=== PATIENT | male | born 1945 | race Caucasian/White ===

== ENCOUNTER 2020-04-01 01:20 | Observation (INO) ==
[2020-04-01] MEDS ORDERED: 0.9 % Sodium Chloride 500 ML IVC ONE (01:22)
[2020-04-01] MEDS ORDERED: Aspirin 81 MG TAB.CHEW PO ONE (01:26)
[2020-04-01 01:50] LABS: Basophils # 0.1 K/mcL (0.0-0.2); Basophils % 0.5 %; Eosinophils # 0.1 K/mcL (0.0-0.6); Hematocrit 45.6 % (37.5-50.1); Hemoglobin 14.7 g/dL (12.9-16.9); Immature Granulocytes % 0.4 % (0-4); Lymphocytes # 1.7 K/mcL (0.6-4.6); Lymphocytes % 15.7 %; Mean Corpuscular HGB Conc 32.2 g/dL (31.6-35.5); Mean Corpuscular Hemoglobin 26.7 pg (28.0-33.3); Mean Corpuscular Volume 82.9 fL (83.0-100.0); Mean Platelet Volume 10.9 fL (9.4-12.4); Monocytes # 0.8 K/mcL (0.0-1.3); Monocytes % 7.3 %; Neutrophils # 8.3 K/mcL (1.6-8.9); Platelet Count 255 K/mcL (140-400); Red Cell Distribution Width 14.4 % (11.5-14.5); Segmented Neutrophils % 75.1 %; White Blood Count 11.1 K/mcL (4.3-11.1)
[2020-04-01 01:53] LABS: INR 1.1; Prothrombin Time 12.6 Seconds (9.4-12.1)
[2020-04-01 02:13] LABS: BUN/Creatinine Ratio 13 (6-26); Blood Urea Nitrogen 16 mg/dL (8-23); Carbon Dioxide 24 mEq/L (23-29); Chloride 108 mEq/L (98-107); Glucose 149 mg/dL (70-105); Osmolality,Calculated 298 (280-300); Potassium 3.6 mEq/L (3.5-5.1); Sodium 142 mEq/L (136-145); Troponin I 0.03 ng/mL (< 0.04); eGFR For African Americans > 60 (> 60); eGFR For Non-African Americans 56 (> 60)
[2020-04-01] MEDS ORDERED: haloperidoL 5 MG TABLET PO ONE (02:52)
[2020-04-01 03:37] LABS: Acetaminophen < 10 mcg/mL (10-20); Ethanol < 10 mg/dL (Less than 10); Salicylate < 2.5 mg/dL (15.0-30.0)
[2020-04-01 04:23] LABS: Bilirubin,Urine Negative (Negative); Blood,Urine Negative (Negative); Clarity,Urine Clear (Clear); Color,Urine Light-Yellow (Yellow); Glucose,Urine (UA) Normal (Normal); Ketones,Urine Trace mg/dL (Negative); Leukocyte Esterase,Urine Negative (Negative); Nitrite,Urine Negative (Negative); Protein,Urine Negative (Neg-Trace); Urobilinogen,Urine Normal (Normal)
[2020-04-01 04:37] LABS: Amphetamine Screen,Urine Negative ng/mL (Cutoff=1000); Barbiturate Screen,Urine Negative ng/mL (Cutoff=200); Benzodiazepines Screen,Urine Negative ng/mL (Cutoff=200); Cannabinoid Screen,Urine Negative ng/mL (Cutoff = 50); Cocaine Screen,Urine Negative ng/mL (Cutoff= 300); Opiate Screen,Urine Negative ng/mL (Cutoff=300); Phencyclidine Screen,Urine Negative ng/mL (Cutoff=25)
[2020-04-01] MEDS ORDERED: Naloxone 0.4 MG/ML INJ IVP PRN (05:07)
[2020-04-01] MEDS ORDERED: *HR* LORazepam 2 MG/ML VIAL ONE (06:37)
[2020-04-01] MEDS: *HR* LORazepam 2 MG/ML VIAL IVP ONE ×2 (06:41→07:16)
[2020-04-01] MEDS ORDERED: Dexmedetomidine HCl 400 MCG/100 ML MLS IVC SCH (07:00)
[2020-04-01] MEDS ORDERED: Acetaminophen 325 MG TABLET PO PRN (08:44)
[2020-04-01] MEDS ORDERED: *HR* LORazepam 1 MG TABLET PO PRN (08:44)
[2020-04-01] MEDS ORDERED: Haloperidol Lactate 5 MG/ML VIAL IM PRN (08:44)
[2020-04-01] MEDS ORDERED: Nitroglycerin 0.4 MG TAB.SUBL SL SCH (08:45)
[2020-04-01] MEDS ORDERED: Perflutren Lipid Microsphere 1.3 ML in 0.9 % Sodium Chloride 8.7 ML IVP PRN (08:47)
[2020-04-01] MEDS ORDERED: Nitroglycerin 0.4 MG TAB.SUBL SL PRN (08:54)
[2020-04-01] MEDS: amLODIPine 5 MG TABLET PO SCH (09:17)
[2020-04-01] MEDS: Multivit/Ca/Min/Fe/FA 1 TAB TABLET PO SCH (09:17)
[2020-04-01] MEDS: Cholecalciferol (D-3) 1,000 UNIT (25MCG) TABLET PO SCH (09:18)
[2020-04-01] MEDS: Aspirin Enteric Coated 81 MG Tablet PO SCH (09:18)
[2020-04-01] MEDS: *HR* LORazepam 2 MG/ML VIAL IVP PRN ×2 (12:47→16:59)
[2020-04-01] MEDS: *HR* Heparin 5,000 UNIT/ML VIAL SQ SCH (16:58)
[2020-04-01] MEDS ORDERED: FLUVOXAMINE MALEATE 300 MG PO SCH (21:00)
[2020-04-01] MEDS: Melatonin 3 MG TABLET PO SCH (21:01)
[2020-04-01] MEDS: Latanoprost 2.5 ML BOTTLE BOTH EYES SCH (21:10)
[2020-04-01] MEDS: traZODone 50 MG TABLET PO SCH (21:10)
[2020-04-02 02:58] LABS: Chol/HDL Ratio 2.4 (0-4.9)
[2020-04-02] MEDS ORDERED: Regadenoson 0.4 MG/5 ML SYRINGE IVP ONE (05:57)
[2020-04-02] MEDS: *HR* Heparin 5,000 UNIT/ML VIAL SQ SCH ×2 (06:33→19:09)
[2020-04-02] MEDS: Multivit/Ca/Min/Fe/FA 1 TAB TABLET PO SCH (08:37)
[2020-04-02] MEDS: Aspirin Enteric Coated 81 MG Tablet PO SCH (08:37)
[2020-04-02] MEDS: amLODIPine 5 MG TABLET PO SCH (08:39)
[2020-04-02] MEDS: Cholecalciferol (D-3) 1,000 UNIT (25MCG) TABLET PO SCH (08:39)
[2020-04-02 08:49] LABS: Estimated Average Glucose 114 mg/dl
[2020-04-02] MEDS: traZODone 50 MG TABLET PO SCH (20:27)
[2020-04-02] MEDS: Melatonin 3 MG TABLET PO SCH (20:28)
[2020-04-02] MEDS: Latanoprost 2.5 ML BOTTLE BOTH EYES SCH (20:30)
[2020-04-03 06:20] VITALS: BP 167/95
[2020-04-03] MEDS: *HR* Heparin 5,000 UNIT/ML VIAL SQ SCH (06:20)
[2020-04-03] MEDS: Aspirin Enteric Coated 81 MG Tablet PO SCH (09:01)
[2020-04-03] MEDS: Cholecalciferol (D-3) 1,000 UNIT (25MCG) TABLET PO SCH (09:02)
[2020-04-03] MEDS: amLODIPine 5 MG TABLET PO SCH (09:02)
[2020-04-03] MEDS: Multivit/Ca/Min/Fe/FA 1 TAB TABLET PO SCH (09:02)
== END 2020-04-03 09:42 ==
LOC: 3BNU 01:20 → EMEROOARM 01:20 → SUATTDRO 04:47 → 3BNU 05:15
PROVIDERS: ADMIT Family Medicine; ATTEND Internal Medicine